=== PATIENT | female | born 1995 | race Asian ===

== ENCOUNTER 2018-11-03 08:11 | Emergency (ER) | payer BC ==
[~2018-11-03] VITALS: Ht 165.1 cm; Wt 58.2 kg
[~2018-11-03 08:11] MED LIST: PLAN B ONE-STE1.5 MG PO
[2018-11-03 08:18] VITALS: TEMP 97.7
[2018-11-03] MEDS ORDERED: EFFEXOR100 MG (08:30)
[2018-11-03 09:04] LABS: BASO # 0.1 (0.0-0.2); BASO % 0.8 % (0.0-2.0); EOS # 0.3 (0.0-0.7); EOS % 4.4 % (0-4.0); GRAN # 4.2 (1.4-6.5); GRAN % 56.7 % (42.2-75.2); HEMATOCRIT 40.7 % (37.0-47.0); HEMOGLOBIN 13.9 g/dl (12.5-16.0); LYMPH # 2.3 (1.2-3.4); LYMPH % 30.9 % (20.0-51.0); MEAN CELL VOLUME 87 fl (80.0-100.0); MEAN CORPUSCULAR HEMOGLOBIN 30 pg (27.0-31.0); MEAN CORPUSCULAR HGB CONC 34 g/dl (33.0-37.0); MEAN PLATELET VOLUME 10.7 fl (7.4-10.4); MONO # 0.5 (0.1-0.6); MONO % 6.7 % (1.7-9.3); PLATELET COUNT 213 K/mm3 (130-400); REDCELL DISTRIBUTION WIDTH-CV 12.9 % (11.5-14.5)
[2018-11-03 09:15] LABS: C-REACTIVE PROTEIN 0.7 mg/dL (0.0-0.9)
[2018-11-03 09:34] LABS: ERYTHROCYTE SEDIMENTATION RATE 13 mm/hr (0-20)
[2018-11-03 09:43] LABS: TROPONIN-I < 0.012 ng/mL (0.000-0.035)
[2018-11-03 10:21] VITALS: BP 122/65; PULSE 87
== END 2018-11-03 10:19 | disposition home or self-care (01) ==
LOC: COL.ER 08:11
PROVIDERS: Family Medicine
DX: O99.519 Diseases of the respiratory system complicating pregnancy, unspecified trimester (principal); R09.1 Pleurisy; Z3A.00 Weeks of gestation of pregnancy not specified
CPT/HCPCS: J1885